=== PATIENT | female | born 1995 | race Caucasian/White ===

== ENCOUNTER → 2023-01-19 14:08 | Outpatient (CLI) | payer OTHER, MEDICAID, SELFPAY ==
--- NOTE | 2023-01-19 14:21 | DI.RAD.S_ITS ---
PROCEDURE: XR HAND RT MIN 3V INDICATIONS: pain swelling in both hands. TECHNIQUE: 3 views of the hand(s) acquired. COMPARISON: None. FINDINGS: Bones: No fractures or dislocations. Carpal bones are normally aligned. No suspicious bony lesions. Soft tissues: No suspicious soft tissue calcifications. IMPRESSION: No acute bony abnormality. Approved by: Nik Alvarado M.D. on 01/19/2023 at 18:09
--- NOTE | 2023-01-19 14:21 | DI.RAD.S_ITS ---
PROCEDURE: XR HAND LT MIN 3V INDICATIONS: pain swelling in both hands. TECHNIQUE: 3 views of the hand(s) acquired. COMPARISON: None. FINDINGS: Bones: No fractures or dislocations. Carpal bones are normally aligned. No suspicious bony lesions. Soft tissues: No suspicious soft tissue calcifications. IMPRESSION: No acute bony abnormality. Approved by: Nik Alvarado M.D. on 01/19/2023 at 18:11
--- NOTE | 2023-01-19 14:21 | DI.RAD.S_ITS ---
PROCEDURE: XR WRIST LT MIN 3V INDICATIONS: pain swelling in both hands. TECHNIQUE: 4 views of the wrist were acquired. COMPARISON: None. FINDINGS: Bones: No fractures or dislocations. No suspicious bony lesions. Soft tissues: No suspicious soft tissue calcifications. IMPRESSION: No acute bony abnormality. Approved by: Nik Alvarado M.D. on 01/19/2023 at 18:08
--- NOTE | 2023-01-19 14:21 | DI.RAD.S_ITS ---
PROCEDURE: XR WRIST RT MIN 3V INDICATIONS: pain swelling in both hands. TECHNIQUE: Four views of the right wrist were obtained COMPARISON: None. FINDINGS: Bones: No fractures or dislocations. No suspicious bony lesions. Soft tissues: No suspicious soft tissue calcifications. IMPRESSION: No acute bony abnormality. Approved by: Nik Alvarado M.D. on 01/19/2023 at 18:07
[2023-01-19 14:44] LABS: Add Manual Diff / Slide Review NO; Basophils Absolute Auto 100 /uL (0-100); Basophils Percent Auto 0.8 % (0-2); Eosinophils Absolute Auto 100 /uL (0-450); Eosinophils Percent Auto 1.3 % (2-4); Hematocrit 41.8 % (36-46); Hemoglobin 14.3 g/dL (12.0-16.0); Lymphocytes Absolute Auto 3100 /uL (1100-4500); Lymphocytes Percent Auto 37.9 % (25-40); Mean Corpuscular HGB Conc 34.1 % (30-36); Mean Corpuscular Hemoglobin 30.8 PG (26-34); Mean Corpuscular Volume 90.2 fL (80-100); Monocytes Absolute Auto 600 /uL (0-900); Monocytes Percent Auto 7.6 % (3-14); Neutrophils Absolute Auto 4300 /uL (1500-7000); Neutrophils Percent Auto 52.4 % (50-75); Platelet Count 246 X10^3/uL (150-400); Red Blood Cell Count 4.64 X10^6/uL (4.0-5.2); Red Cell Distribution Width 13.1 % (11.6-14.8); White Blood Cell Count 8.1 X10^3/uL (4.5-11.0)
[2023-01-19 14:53] LABS: Hemoglobin A1C% w Est Avg Glu 5.4 % (4.0-6.0)
[2023-01-19 15:04] LABS: Alanine Aminotransferase 24 IU/L (<35); Albumin 4.4 g/dL (3.5-5.0); Albumin Globulin Ratio 1.4 (1.0-2.8); Alkaline Phosphatase 64 U/L (38-126); Aspartate Aminotransferase 33 IU/L (14-36); Bilirubin Total 0.5 mg/dL (0.2-1.3); Blood Urea Nitrogen 13 mg/dL (7-17); Calcium 9.8 mg/dL (8.4-10.2); Carbon Dioxide 27 mmol/L (22-32); Chloride 103 mmol/L (98-107); Estimated Glomerular Filt Rate > 60 mL/min (>60); Globulin 3.1 g/dL (1.7-4.1); Glucose 97 mg/dL (70-100); HEMOLYSIS 16 (0-50); Potassium 4.2 mmol/L (3.4-5.1); Sodium 138 mmol/L (137-145); Total Protein 7.5 g/dL (6.3-8.2)
[2023-01-19 15:06] LABS: Erythrocyte Sedimentation Rate 3 MM/HR (0-20)
[2023-01-19 15:08] LABS: Rheumatoid Factor < 8.6 IU/mL (<12.0)
[2023-01-19 15:35] LABS: Thyroid Stimulating Hormone 1.43 uIU/mL (0.47-4.68)
[2023-01-19 15:53] LABS: Vitamin B12 476 pg/mL (239-931)
[2023-01-19 16:33] LABS: C-Reactive Protein Quant 0.5 mg/dL (<1.0)
[2023-01-19 16:46] LABS: Vitamin D 25 Hydroxy (D3) 34.1 ng/mL (30.0-100.0)
[2023-01-21 14:39] LABS: CCP Antibodies IgG/IgA 12 units (0-19)
[2023-01-25 18:34] LABS: ANA Screen, IFA Positive (.); Speckled Pattern >1:1280 (.)
== END ==
PROVIDERS: PCP Family Medicine; Referring Provider Family Medicine; Visit Provider Family Medicine
DX: Z13.1 Encounter for screening for diabetes mellitus (principal); M25.541 Pain in joints of right hand; M25.542 Pain in joints of left hand; R20.0 Anesthesia of skin; R20.2 Paresthesia of skin; R35.0 Frequency of micturition; R35.89 Other polyuria
CPT/HCPCS: 36415; 73110; 73130; 80053; 82306; 82607; 83036; 84443; 85025; 85651; 86038; 86140; 86200; 86430

== ENCOUNTER → 2023-04-21 11:17 | Outpatient (CLI) | payer OTHER, MEDICAID, SELFPAY ==
--- NOTE | 2023-04-21 | DI.MRI.S_ITS ---
PROCEDURE: MR HAND RT WO/W CON INDICATIONS: INLAMMATORY ARTHRITIS SUSPECTED TECHNIQUE: Coronal and axial T1 spin echo and T2 fast spin echo with fat saturation. Post-contrast coronal and axial T1 spin echo with fat saturation images through the right hand and wrist. COMPARISON: [facility], CR, XR WRIST RT MIN 3V, 01/19/2023, 14:22. [facility], CR, XR HAND RT MIN 3V, 01/19/2023, 14:22. FINDINGS: Image quality: Excellent. Bones and cartilage: No acute trabecular bone injury or fracture. Focal surface bright [id number] signal is seen within the trapezoid as well as within the proximal ulnar aspect of the lunate. No significant joint space narrowing is seen. No focal osseous edema or osteitis. Synovium: No significant joint effusions or enhancing synovial hypertrophy. Soft tissues: Visualized flexor and extensor tendons are intact without tenosynovitis. The hand musculature is normal in signal intensity and bulk. IMPRESSION: Chronic cystic changes versus small chronic osseous erosions in the trapezoid and lunate. No focal osteitis. No significant joint effusion or synovial hypertrophy. No signs of tenosynovitis. Approved by: Elan Bermudez M.D. on 04/22/2023 at 11:37
== END ==
PROVIDERS: PCP Family Medicine; Referring Provider Internal Medicine Rheumatology; Visit Provider Internal Medicine Rheumatology
DX: M79.601 Pain in right arm (principal); M79.602 Pain in left arm
CPT/HCPCS: 73220; A9579

== ENCOUNTER → 2023-08-18 06:44 | Outpatient (CLI) | payer OTHER, MEDICAID, SELFPAY ==
--- NOTE | 2023-08-18 06:45 | DI.US.S_ITS ---
PROCEDURE: US PELVIC COMPLETE INDICATIONS: Dyspareunia, irregular menses TECHNIQUE: Real-time scanning was performed of the pelvic organs, with image documentation. Additional endovaginal scanning was necessary due to incomplete visualization of the adnexal and endometrial structures by transabdominal scanning. COMPARISON: None. FINDINGS: Uterus: Uterus is retroverted and normal in size at 7.4 x 5.0 x 5.3 cm. The myometrium is homogeneous. The endometrium measures 26 mm combined thickness. Ovaries: The right ovary measures 2.4 x 2.7 x 2.2 cm, with a calculated ovarian volume of 7.1 cc. The left ovary measures 2.4 x 2.7 x 2.9 cm, with a calculated ovarian volume of 9.8 cc. The ovaries have a normal sonographic appearance. Less than 12 follicles can be seen in each ovary. No adnexal masses are seen. Other: No pathologic free abdominal or pelvic fluid. IMPRESSION: The endometrium is increased in thickness measuring up to 26 mm. Recommend endometrial sampling or short-term follow-up ultrasound. Ovaries are normal in appearance. We strive to produce accurate, complete, and clear reports of imaging services. To assist us in improving patient care, this report was composed using standard report templates and voice recognition software. Therefore, it may contain abnormal punctuation, insertions and/or omissions. Occasional wrong-word or sound-alike substitutions may occur. Though we review the report and make efforts to correct it, we do recommend that the report be read carefully in proper context to recognize any text inaccuracies. Dictated by: Ferny Palomares M.D. on 08/18/2023 at 8:37 Approved by: Ferny Palomares M.D. on 08/18/2023 at 8:39
== END ==
LOC: US 06:44
PROVIDERS: PCP Family Medicine; Referring Provider Family Medicine; Visit Provider Family Medicine
DX: N92.6 Irregular menstruation, unspecified (principal); N94.10 Unspecified dyspareunia; R93.89 Abnormal findings on diagnostic imaging of other specified body structures
CPT/HCPCS: 76830; 76856; 93975